=== PATIENT | female | born 1965 | race Caucasian/White ===

== ENCOUNTER → 2017-02-02 07:59 | Outpatient (CLI) | payer OTHER ==
[2016-08-13 13:10] VITALS: BMI 29.8
[~2017-02-02 07:59] MED LIST: DILAUDID2 MG PO; FLUTICASONE PRO16 GM NASAL; IMITREX50 MG PO; LOPRESSOR25 MG PO; MELATONIN 3 MG1 TAB PO; OMEPRAZOLE40 MG PO; PAROXETINE HCL10 MG PO; PEPCID40 MG PO; PHENERGAN25 M1 PO; PREDNISONE5 MG PO; VERAPAMIL HCL40 MG PO; XANAX0.5 MG PO; ZOFRAN ODT4 MG/UDTAB PO
== END | disposition home or self-care (01) ==
LOC: D.RAD 07:59
DX: R13.10 Dysphagia, unspecified (principal)

== ENCOUNTER 2017-06-25 05:17 | Day surgery (SDC) | payer OTHER ==
[2017-06-23 13:57] LABS: HEMATOCRIT 37.3 % (36.0-48.0); HEMOGLOBIN 12.4 g/dL (12-16); MCHC 33.2 g/dL (31.0-37.0); MCV 96.4 fL (80.0-100.0); MEAN PLATELET VOLUME 9.8 fL (7.4-10.4); RBC 3.87 10x6/uL (4.00-5.40); RDW 13.6 % (11.5-14.5); WBC 5.6 10x3/uL (4.8-10.8)
[2017-06-23 14:03] LABS: ANION GAP 12.9 mmol/L (8-16); CREATININE - SERUM 0.9 mg/dL (0.6-1.3); POTASSIUM - SERUM 3.9 mmol/L (3.5-5.1)
[~2017-06-25] VITALS: Ht 167.6 cm; Wt 70.3 kg
--- NOTE | ~2017-06-25 | HP ---
PATIENT: BETY FLORENTINO MEDICAL RECORD: [id number] ACCOUNT: [id number] LOCATION:D.OPS : 63 ADMISSION DATE: 06/25/17 HISTORY AND PHYSICAL EXAMINATION ADDENDUM A typed history and physical is on the chart. The history and physical is unchanged from when I saw the patient in the office. I have personally reviewed the endoscopic photos. The patient had a 1 cm polyp in the transverse colon, which was biopsied and injected and Endo clipped. It was tattooed with Megan ink. This was a sessile serrated adenoma. I am planning for colonoscopy with polypectomy utilizing argon plasma teacher dramatics. The risks, possible complications, and alternatives to the procedure were explained to the patient. She elects to proceed. TRANSINT:[id number] Voice Confirmation ID: [id number] DOCUMENT ID: [id number] CELINE ARAIZA MD CC: [id number] DICTATION DATE: 06/25/1743 STATISTICAL TYPIST: 06/25/17 0951 [address] [facility] [address] [id number]
--- NOTE | ~2017-06-25 | OP ---
PATIENT NAME: BETY FLORENTINO MEDICAL RECORD: [id number] :63 LOCATION:D.OPS ADMISSION DATE: SURGEON: CELINE ARAIZA MD DATE OF OPERATION: 06/25/2017 PREOPERATIVE DIAGNOSIS: Recurrent serrated adenoma, which has been tattooed, involving the transverse colon. PREOPERATIVE DIAGNOSES: Recurrent serrated adenoma, which has been tattooed, involving the transverse colon with no evidence of recurrence of serrated adenoma. The patient did have a 1.3-cm flat polyp in the cecum, which could only be identified through narrow band imaging. PROCEDURES: 1. Total colonoscopy to cecum. 2. Hot biopsy forceps polypectomy times 1. SURGEON: Celine Araiza MD WATER PLANT OPERATOR: None. BLOOD LOSS: Minimal. ANESTHESIA: General. COMPLICATIONS: None. The risks, possible complications, and alternatives to procedure were explained to the patient. She elected to proceed. OPERATIVE COURSE: The patient was conveyed to the operating room electively on 06/25/2017. General anesthesia was induced by the anesthesia staff. The patient was placed in the Mendoza position. A digital rectal examination was performed. A colonoscope was inserted through the anus. It was easily advanced to the cecum. The prep was adequate. I slowly withdrew the endoscope. I dragged the folds. The pullback was greater than a 20-minute pullback. Utilizing narrow band imaging, I identified a cecal polyp, which was removed in its entirety utilizing the hot biopsy forceps polypectomy technique. I identified the tattoo, which was easily identifiable. I spent about 10 minutes looking around the tattooed area for a recurrent or persistent polyp. I could identify no recurrent or persistent polyp. The endoscope was withdrawn under direct vision. I will see the patient in my office in 2-3 weeks. As this is a recurrent serrated adenoma, I will plan for a colonoscopy in the GI lab in one year. TRANSINT:[id number] Voice Confirmation ID: [id number] DOCUMENT ID: [id number] OPERATIVE REPORT [id number] CHADDNADJABETYCELINE KLEIN MD CC: BUBBA HECTOR MD and YESSENIA WADDELL MD [id number] DICTATION DATE: 06/25/17 0951 TEST RACK OPERATOR: 06/25/17 111[address] [place] [address]
[~2017-06-25 05:17] MED LIST changes: +BUSPAR 15 MG TA15 MG PO; +CYCLOBENZAPRINE10 MG PO; +REMERON15 MG PO
[2017-06-25 07:12] VITALS: BP 111/73; Ht 167.6 cm; Wt 70.3 kg
--- NOTE | 2017-06-25 12:08 | NUR ---
1115 IV DC WITH CATHER TIP INTACT
== END 2017-06-25 11:20 | disposition home or self-care (01) ==
LOC: D.OPS 05:17 → D.PAN 08:00 → D.OPS 11:20
PROVIDERS: Anesthesiology
DX: D12.6 Benign neoplasm of colon, unspecified (principal); Z86.010 Personal history of colon polyps; K21.9 Gastro-esophageal reflux disease without esophagitis; Z01.812 Encounter for preprocedural laboratory examination

== ENCOUNTER → 2018-04-15 08:45 | Outpatient (CLI) | payer OTHER ==
[2017-06-25 07:12] VITALS: BMI 25.0
== END | disposition home or self-care (01) ==
LOC: D.RAD 08:30
DX: R13.12 Dysphagia, oropharyngeal phase (principal)

== ENCOUNTER 2018-07-19 05:50 | Day surgery (SDC) | payer OTHER ==
[~2018-07-19] VITALS: Ht 167.6 cm; Wt 84.1 kg
--- NOTE | ~2018-07-19 | HP ---
PATIENT: BETY FLORENTINO MEDICAL RECORD: [id number] ACCOUNT: [id number] LOCATION:D.OPS : 63 ADMISSION DATE: 07/19/18 PCP: BUBBA HECTOR MD HISTORY AND PHYSICAL EXAMINATION CHIEF COMPLAINT: History of colon polyps. HISTORY OF PRESENT ILLNESS: The patient underwent colonoscopy back on 06/25/2017. The patient has a history of a recurrent serrated adenoma which has been tattooed involving the transverse colon and at that time there was no evidence of recurrence. The patient did have a 1.3 cm flat polyp within the cecum that could only be identified through narrow band imaging. The pathology on that cecal polyp was a sessile serrated adenoma as well. The patient had no melena. No hematochezia. The patient is to undergo surveillance colonoscopy. HOME MEDICATIONS: Please see the nursing list. ALLERGIES: BUSPIRONE, HYDROCODONE, REGLAN, SULFA WELL VICODIN. PAST MEDICAL AND SURGICAL HISTORY: Laparoscopic Rani fundoplication, history of cholecystectomy, history of hysterectomy, history of gastritis/peptic ulcer disease, gastroesophageal reflux. PHYSICAL EXAMINATION: GENERAL: The patient does not appear acutely ill. She does not appear chronically ill. VITAL SIGNS: Reviewed. EARS: External ears appear normal. EYES: Extraocular movements are intact. NECK: Trachea is midline. CHEST: No intercostal retractions. PULMONARY: Nonlabored, no stridor. ABDOMEN: No peritonitis with movement. IMPRESSION: History of colon polyps, in need of surveillance colonoscopy. PLAN: Colonoscopy. TRANSINT:[id number] Voice Confirmation ID: [id number] DOCUMENT ID: [id number] CELINE ARAIZA MD at 1415 CC: BUBBA HECTOR [id number] DICTATION DATE: 07/19/18 1005 CHEMICAL PLANT OPERATOR SUPERVISOR: 07/19/18 1144 [facility] 07/19/[id number] [place] [address]
--- NOTE | ~2018-07-19 | OP ---
PATIENT NAME: BETY FLORENTINO MEDICAL RECORD: [id number] :63 LOCATION:D.OPS ADMISSION DATE: SURGEON: ISAIAH ARAIZA MD DATE OF OPERATION: 07/19/2018 PREOPERATIVE DIAGNOSES: History of colon polyps including history of a serrated adenoma of the cecum as well as a tattooed serrated adenoma of the transverse colon. POSTOPERATIVE DIAGNOSES: 1. History of colon polyps including history of a serrated adenoma of the cecum as well as a tattooed serrated adenoma of the transverse colon. No evidence of regrowth or persistence of the polyps. 2. Minimal sigmoid diverticulosis. PROCEDURE: Total colonoscopy to cecum. SURGEON: Isaiah Araiza MD SPLIT LEATHER MOSSER: None. BLOOD LOSS: Minimal. ANESTHESIA: IV sedation. COMPLICATIONS: None. The risks, possible complications, and alternatives to the procedure were explained to the patient. She elects to proceed. Indication for the anesthesia staff being present during the procedure includes anxiety regarding the procedure. ENDOSCOPIC COURSE: The patient was conveyed to endoscopy suite electively on 07/19/2018. IV sedation was induced by the anesthesia staff. The patient was placed in the Mendoza position. A digital rectal examination was performed. A colonoscope was inserted through the anus. It was easily advanced to the cecum. The prep was adequate. I slowly withdrew the endoscope. I irrigated and aspirated extensively. I dragged the folds. A combination of normal imaging and narrow band imaging were utilized. The pullback was greater than 18-minute pullback. The tattoo was noticed in the transverse colon. I noted no evidence of regrowth or persistence of the polypoid lesion. A retroflexed view was obtained in the rectum. I then unretroflexed the scope and removed it under direct vision. There is no need for the patient to follow up with me in the office. I will plan for her next surveillance colonoscopy to take place in 3 years. TRANSINT:[id number] Voice Confirmation ID: [id number] DOCUMENT ID: [id number] OPERATIVE REPORT [id number] BETY FLORENTINO ROBERT MD at 1415 CC: BUBBA HECTOR [id number] DICTATION DATE: 07/19/18 1057 INTEGRATION ARCHITECT: 07/19/18 1130 [facility] 07/19/18 [facility] [address] [place] [address]
[2018-07-19 06:12] LABS: HEMOGLOBIN 13.3 g/dL (12-16); MCHC 33.3 g/dL (31.0-37.0); MCV 96.2 fL (80.0-100.0); MEAN PLATELET VOLUME 9.2 fL (7.4-10.4); RBC 4.16 10x6/uL (4.00-5.40); WBC 6.4 10x3/uL (4.8-10.8)
[2018-07-19 07:10] VITALS: BP 115/81; Ht 167.6 cm; Wt 84.1 kg
[2018-07-19] MEDS ORDERED: TRAZODONE HCL150 MG PO (07:24)
[2018-07-19] MEDS ORDERED: CLIMARA 0.0.05 MG/PA TRANSDERM (07:24)
[2018-07-19] MEDS ORDERED: PEPCID40 MG PO (07:25)
[2018-07-19] MEDS ORDERED: AXIRON30 MG/1.5 TP (07:25)
[2018-07-19] MEDS ORDERED: TOPAMAX50 MG PO (07:26)
== END 2018-07-19 11:33 | disposition home or self-care (01) ==
LOC: D.OPS 05:50
PROVIDERS: Anesthesiology
DX: K57.90 Diverticulosis of intestine, part unspecified, without perforation or abscess without bleeding (principal); Z09 Encounter for follow-up examination after completed treatment for conditions other than malignant neoplasm; Z87.19 Personal history of other diseases of the digestive system

== ENCOUNTER → 2018-11-22 14:05 | Outpatient (CLI) | payer OTHER ==
[2018-07-19 07:10] VITALS: BMI 29.9
[~2018-11-22 14:05] MED LIST changes: +AXIRON30 MG/1.5 TP; +CLIMARA 0.0.05 MG/PA TRANSDERM; +TOPAMAX50 MG PO; +TRAZODONE HCL150 MG PO
[2018-11-22 16:18] LABS: AMYLASE - SERUM 63 U/L (25-115); LIPASE 184 U/L (73-393)
== END | disposition home or self-care (01) ==
LOC: D.LAB 13:15 → D.CT 14:30
PROVIDERS: Internal Medicine Gastroenterology
DX: R19.7 Diarrhea, unspecified (principal); R10.31 Right lower quadrant pain; R10.32 Left lower quadrant pain